=== PATIENT | male | born 1970 | race Caucasian/White ===

== ENCOUNTER 2021-11-27 19:55 | Emergency (ER) | payer MEDICARE ==
[~2021-11-27] VITALS: Wt 86.6 kg
[~2021-11-27 19:55] MED LIST: CLOMIPRAMINE HC75 MG PO; CLONAZEPAM1 MG PO; FENOFIBRATE145 M1 PO; KLONOPIN1 M1 PO; LAMICTAL200 MG PO; OMEPRAZOLE D/R20 MG PO; PROPRANOLOL HCL40 MG PO; QUETIAPINE FUM400 M1 PO; WELLBUTRIN SR150 MG PO
== END 2021-11-28 01:17 | disposition home or self-care (01) ==
LOC: ED 19:55
DX: S39.012A Strain of muscle, fascia and tendon of lower back, initial encounter (principal); S29.019A Strain of muscle and tendon of unspecified wall of thorax, initial encounter; Z91.040 Latex allergy status; Z91.041 Radiographic dye allergy status; Z79.899 Other long term (current) drug therapy; Z98.890 Other specified postprocedural states; X58.XXXA Exposure to other specified factors, initial encounter; Y93.89 Activity, other specified; Y92.89 Other specified places as the place of occurrence of the external cause; Y99.8 Other external cause status